=== PATIENT | male | born 1985 | race Caucasian/White ===

== ENCOUNTER → 2021-01-20 11:33 | Outpatient (CLI) | payer BC, SELFPAY ==
--- NOTE | 2021-01-20 11:45 | XR_ITS ---
PROCEDURE: XR CHEST 2V CLINICAL HISTORY: RIGHT SIDED CHEST PAIN COMPARISON: No exams were available for comparison FINDINGS: The cardiomediastinal silhouette and pulmonary vascularity are within normal limits. The lungs are clear without infiltrates, suspicious nodules, or pleural effusions. No acute bony abnormalities. IMPRESSION: No acute findings. Dictated by: Jos Banda MD 01/20/2021 12:18 Jos Banda MD in [place] 01/20/2021 12:18
--- NOTE | 2021-01-20 11:45 | XR_ITS ---
PROCEDURE: XR RIBS RT 2V CLINICAL INDICATION: RT SIDED CHEST PAIN COMPARISON: No exams were available for comparison FINDINGS: No fracture. No lytic or blastic change. IMPRESSION: Negative right ribs Dictated by: Jos Banda MD 01/20/2021 12:18 Jos Banda MD in [facility] 01/20/2021 12:18
== END ==
PROVIDERS: PCP Family Medicine; Visit Provider Family Medicine
DX: R07.89 Other chest pain (principal)
CPT/HCPCS: 71046; 71100

== ENCOUNTER → 2021-09-02 09:42 | Outpatient (CLI) | payer BC, SELFPAY ==
--- NOTE | 2021-09-02 09:47 | US_ITS ---
FINAL REPORT CLINICAL HISTORY: INGUINAL HERNIA OF RIGHT SIDE WITHOUT OBSTRUCTION/GANGRENE FINDINGS: Limited sonographic images of the right groin were obtained. There is an enlarged right inguinal node measuring 1.8 cm which is nonspecific, favor reactive. No hernia is identified. IMPRESSION: Right inguinal node, favor reactive. Reviewed, Interpreted and Dictated by Ivan Schwartz III, MD Transcribed by Cata Stewart Authenticated by Ivan Schwartz III, MD on 09/02/2021 01:48:28 PM [facility]
== END ==
PROVIDERS: PCP Family Medicine; Visit Provider Nurse Practitioner Family
DX: K40.90 Unilateral inguinal hernia, without obstruction or gangrene, not specified as recurrent (principal)
CPT/HCPCS: 76882

== ENCOUNTER → 2021-10-19 13:23 | Outpatient (CLI) | payer BC, SELFPAY ==
--- NOTE | 2021-10-19 13:30 | US_ITS ---
FINAL REPORT CLINICAL HISTORY: LYMPHADENOPATHY INGUINAL FINDINGS: US EXTREMITY, NONVASCULAR, LIMITED, ANATOMIC SPECIFIC Limited sonographic images were obtained of the soft tissues of the right inguinal region. Comparison is made to an exam dated September 02, 2021. There are several mildly enlarged lymph nodes measuring up to 1.5 cm. Lymph nodes have fatty shai and are most likely reactive. These previously measured up to 2.4 cm. IMPRESSION: Mildly enlarged likely reactive lymph nodes. Reviewed, Interpreted and Dictated by Ivan Schwartz III, MD Transcribed by [place] Authenticated by Ivan Schwartz III, MD on 10/20/2021 08:06:54 AM [facility]
== END ==
PROVIDERS: PCP Family Medicine; Visit Provider Physician Assistant
DX: R59.0 Localized enlarged lymph nodes (principal)
CPT/HCPCS: 76882

== ENCOUNTER → 2021-11-05 15:22 | Outpatient (CLI) | payer BC, SELFPAY ==
--- NOTE | 2021-11-05 15:25 | US_ITS ---
FINAL REPORT CLINICAL HISTORY: LYMPHAENOPATHY INGUINAL COMPARISON: October 19, 2021 ultrasound FINDINGS: Sonographic images of the right inguinal region were obtained. Several enlarged right inguinal nodes are again identified. The largest right inguinal node measures 3.0 cm in length. It has a fatty hilum consistent with a reactive node. Several other smaller right inguinal nodes also have fatty shai consistent with reactive nodes. The dominant right inguinal node is larger since the prior examination. IMPRESSION: Several enlarged right inguinal nodes that have an appearance most consistent with reactive nodes. The largest node has increased in size since the prior examination. Authenticated and [facility]
== END ==
PROVIDERS: PCP Family Medicine; Visit Provider Physician Assistant
DX: R59.0 Localized enlarged lymph nodes (principal)
CPT/HCPCS: 76882

== ENCOUNTER → 2021-11-19 07:33 | Outpatient (CLI) | payer BC, SELFPAY ==
--- NOTE | 2021-11-19 07:39 | US_ITS ---
FINAL REPORT CLINICAL HISTORY: LYMPHADENOPATHY, INGUINAL rt lymph node core and fna FINDINGS: ULTRASOUND GUIDED RIGHT INGUINAL LYMPH NODE BIOPSY HISTORY: Right inguinal lymph nodes. ATTENDING PHYSICIAN: Dr. Efren MD. PHYSICIAN FIRE CHIEF: Orly Marcelino PA-C. TECHNIQUE: Informed consent was obtained from the patient. A timeout procedure was performed prior to beginning. Limited sonographic evaluation of right inguinal region was performed to localize the lymph node of interest. 3 cm lymph node was targeted for biopsy. The right groin was prepped in a routine sterile fashion and locally anesthetized with 1% lidocaine. FNA was performed with 25-gauge needle under direct sonographic visualization. 3 passes were made. Additionally, three 18-gauge core biopsies were performed. Specimens were divided between CytoLyt, formalin, and RPMI. Cytology is pending. Procedure was well tolerated. IMPRESSION: Technically successful right inguinal lymph node fine needle aspirationand core biopsy. Reviewed, Interpreted and Dictated by Ivan Schwartz III, MD Transcribed by Orly Marcelino PA-C Authenticated and [facility]
== END ==
PROVIDERS: PCP Family Medicine; Visit Provider Physician Assistant
DX: R59.0 Localized enlarged lymph nodes (principal)
CPT/HCPCS: 10005; 76942

== ENCOUNTER → 2022-04-26 10:43 | Outpatient (CLI) | payer BC, SELFPAY ==
[2022-04-26 18:45] LABS: Basophils % 0.9 % (0.1-2.0); Eosinophils % 1.1 % (0.1-12.0); Hemoglobin 15.6 g/dL (14.1-18.0); Lymphocytes # 1.7 K/mm3 (0.7-4.5); Lymphocytes % 41.4 % (10-50); Mean Corpuscular HGB Conc 33.1 g/dL (31.8-35.4); Mean Corpuscular Hemoglobin 29.6 pg (27.0-31.2); Mean Corpuscular Volume 89.5 fl (80-94); Mean Platelet Volume 9.7 fl (7.4-10.4); Monocytes # 0.3 K/mm3 (0.1-1.0); Monocytes % 6.6 % (1.7-9.3); Platelet Count 222 K/mm3 (142-424); Red Blood Count 5.25 M/mm3 (4.60-6.20); Red Cell Distribution Width 13.1 % (11.5-17.5)
[2022-04-26 18:49] LABS: Alanine Aminotransferase 19 U/L (12-78); Albumin Level 4.7 g/dl (3.5-5.0); Albumin/Globulin Ratio 1.7 (1.1-1.8); Alkaline Phosphatase 100 U/L (38-126); Anion Gap 16.3 mEq/L (5-15); Aspartate Amino Transferase 29 U/L (17-59); Bilirubin,Total 2.3 mg/dl (0.2-1.3); Blood Urea Nitrogen 20 mg/dl (9-20); Calcium 9.7 mg/dl (8.4-10.2); Carbon Dioxide 31 mmol/L (22.0-30.0); Chloride 97 mmol/L (98-107); Chol/HDL Ratio 4.5 (1-3.5); Cholesterol 214 mg/dl (140-200); Estimated Glomerular Filt Rate 69 ml/min (>60); GFR (African American) 84 ML/MIN (>60); Globulin 2.8 g/dL (1.3-3.2); Glucose 87 mg/dl (74-100); HDL Cholesterol 48 mg/dl (40-60); Potassium 4.3 mmoL/L (3.5-5.1); Sodium 140 mmol/L (136-145); Total Protein,Serum 7.5 g/dl (6.3-8.2); Triglycerides 58 mg/dl (30-150); VLDL Cholesterol 12 mg/dL (0-40)
[2022-04-26 19:01] LABS: Direct LDL Cholesterol 139.35 mg/dL (100-129)
[2022-04-26 19:19] LABS: Thyroid Stimulating Hormone 1.33 uIU/mL (0.465-4.68)
== END ==
PROVIDERS: PCP Nurse Practitioner; Visit Provider Nurse Practitioner
DX: Z00.00 Encounter for general adult medical examination without abnormal findings (principal); Z13.0 Encounter for screening for diseases of the blood and blood-forming organs and certain disorders involving the immune mechanism; Z13.1 Encounter for screening for diabetes mellitus; Z13.220 Encounter for screening for lipoid disorders; Z13.29 Encounter for screening for other suspected endocrine disorder
CPT/HCPCS: 80053; 80061; 84443; 85025